=== PATIENT | female | born 1990 | race Caucasian/White ===

== ENCOUNTER 2021-02-14 18:31 | Emergency (ER) | payer MEDICARE ==
[~2021-02-14] VITALS: Wt 73.9 kg
== END 2021-02-14 20:40 | disposition home or self-care (01) ==
LOC: ED 18:31
DX: K08.89 Other specified disorders of teeth and supporting structures (principal); K03.81 Cracked tooth; Z88.1 Allergy status to other antibiotic agents

== ENCOUNTER 2021-10-17 15:53 | Emergency (ER) | payer OTHER ==
[~2021-10-17] VITALS: Ht 144.7 cm; Wt 73.5 kg
[2021-10-17] MEDS ORDERED: IBUPROFEN600 MG PO (16:59)
[2021-10-17] MEDS ORDERED: METRONIDAZOLE500 M1 PO (16:59)
[2021-10-17] MEDS ORDERED: VIBRAMYCIN100 MG PO (16:59)
== END 2021-10-17 17:15 | disposition home or self-care (01) ==
LOC: ED 15:53
DX: S61.452A Open bite of left hand, initial encounter (principal); W55.01XA Bitten by cat, initial encounter; Y93.89 Activity, other specified; Y92.89 Other specified places as the place of occurrence of the external cause; Y99.8 Other external cause status